=== PATIENT | female | born 1980 | race Caucasian/White ===

== ENCOUNTER 2023-07-22 18:10 | Emergency (ER) | payer MEDICAID, OTHER ==
[~2023-07-22] VITALS: Ht 154.9 cm; Wt 68.0 kg
[2023-07-22 18:15] VITALS: BP_SYST 119; PULSE 92; RESP 18; TEMP 98.1; O2SAT 99
[2023-07-22 18:56] LABS: BASOPHILS # (AUTO) 0.1 K/uL (0.0-0.2); BASOPHILS % (AUTO) 0.9 % (0.0-2.0); EOSINOPHILS # (AUTO) 0.1 K/uL (0.0-0.4); EOSINOPHILS % (AUTO) 2.1 % (0.0-4.0); HEMATOCRIT 32.9 % (36-48); HEMOGLOBIN 11.4 g/dL (12.0-16.0); LYMPHOCYTES # (AUTO) 1.6 K/uL (1.0-5.5); LYMPHOCYTES % (AUTO) 24.4 % (20.5-51.5); MEAN CORPUSCULAR HEMOGLOBIN 30 pg (27-31); MEAN CORPUSCULAR HGB CONC 35 % (32-36); MEAN CORPUSCULAR VOLUME 87 fL (79.0-98.0); MONOCYTES # (AUTO) 0.4 K/uL (0.0-1.0); MONOCYTES % (AUTO) 5.7 % (1.7-9.3); NEUTROPHILS # (AUTO) 4.5 K/uL (1.8-7.7); NEUTROPHILS % (AUTO) 66.9 % (40.0-70.0); PLATELET COUNT (AUTO) 245 K/uL (130-430); RED BLOOD CELL COUNT(AUTO) 3.78 MIL/uL (4.2-6.2); RED CELL DISTRIBUTION WIDTH 15.6 % (9.0-15.0); WHITE BLOOD COUNT (AUTO) 6.7 K/uL (4.8-10.8)
[2023-07-22 18:56] LABS: BILIRUBIN,URINE NEGATIVE (NEGATIVE); BLOOD, URINE 2+ (NEGATIVE); CLARITY/URINE SL CLOUDY (CLEAR); COLOR,URINE YELLOW (YELLOW); GLUCOSE,URINE NEGATIVE (NEGATIVE); KETONES,URINE NEGATIVE (NEGATIVE); LEUKOCYTE ESTERASE ,URINE 3+ (NEGATIVE); NITRITE, URINE NEGATIVE (NEGATIVE); PH,URINE 6.5 (5.0-8.0); PROTEIN URINE TRACE (NEGATIVE); UROBILINOGEN,URINE 0.2 (0.2-1.0)
[2023-07-22 19:03] LABS: BACTERIA,URINE MODERATE /HPF (None Seen); MUCUS,URINE 1+ /LPF (None Seen); OTHER CASTS, URINE WBC CASTS 1+ /LPF (None Seen); WBC,URINE 50-80 /HPF (0-3)
[2023-07-22 19:06] LABS: ALANINE AMINOTRANSFERASE 13 U/L (12-78); ALBUMIN 3.4 g/dL (3.4-4.8); ANION GAP 9 (5-15); ASPARTATE AMINOTRANSFERASE 14 U/L (10-37); BILIRUBIN,DIRECT 0.1 mg/dL (0.0-0.3); CARBON DIOXIDE 29 mmol/L (23-29); CHLORIDE 101 mmol/L (98-107); CREATININE 1.07 mg/dL (0.55-1.30); GFR AFRICAN AMERICAN 71 mL/min (>90); GFR NON AFRICAN-AMERICAN 59 mL/min (>90); GLUCOSE 88 mg/dL (74-106); LIPASE 24 U/L (16-77); POTASSIUM 3.7 mmol/L (3.5-5.1); SODIUM SERUM 139 mmol/L (136-145); TOTAL BILIRUBIN 0.2 mg/dL (0.0-1.0); TOTAL PROTEIN, SERUM 7.6 g/dL (6.4-8.3); UREA NITROGEN, BLOOD 6 mg/dL (8-21)
[2023-07-22] MEDS: IPRATROPIUM/ALBUTEROL SULFATE 3 ML AMPUL.NEB (DUONEB) INH ONE (19:09)
[2023-07-22] MEDS: KETOROLAC TROMETHAMINE 30 MG VIAL IVP ONE (20:14)
[2023-07-22] MEDS: ONDANSETRON HCL 4 MG/2 ML VIAL IVP ONE (20:15)
[2023-07-22] MEDS ORDERED: cefTRIAXone 1 GM VIAL ONE (20:54)
[2023-07-22] MEDS: cefTRIAXone 1 GM in D5W 50 ML IV ONE (20:57)
[2023-07-22] MEDS ORDERED: DOXY100C5 PO (21:13)
[2023-07-22] MEDS ORDERED: DICL50TA9 PO (21:13)
[2023-07-22] MEDS ORDERED: ONDA-8 TL (21:13)
[2023-07-22 21:40] VITALS: BP_SYST 140; PULSE 94; RESP 19; TEMP 97.6; O2SAT 97
== END 2023-07-22 21:37 | disposition home or self-care (01) ==
LOC: SED 18:10
DX: N39.0 Urinary tract infection, site not specified (principal); R10.30 Lower abdominal pain, unspecified; I10 Essential (primary) hypertension; J44.9 Chronic obstructive pulmonary disease, unspecified; Z85.43 Personal history of malignant neoplasm of ovary; Z98.890 Other specified postprocedural states
CPT/HCPCS: 99285; 96365; 96375; 71045; 80076; 80048; 81001; 83880; 83690; 85025; 87086; 84484; 36415; 93005; 94640; J0696; J1885; J2405; 81000; 81015

== ENCOUNTER 2023-08-08 20:20 | Emergency (ER) | payer MEDICAID ==
[~2023-08-08] VITALS: Ht 154.9 cm; Wt 70.3 kg
[~2023-08-08 20:20] MED LIST: DICL50TA9 PO; DOXY100C5 PO; ONDA-8 TL
[2023-08-08 20:28] VITALS: BP_SYST 147; PULSE 90; RESP 18; TEMP 98.7; O2SAT 100
[2023-08-08] MEDS: MORPHINE 4 MG INJ. 4 MG/ML VIAL IVP ONE (20:56)
[2023-08-08 20:57] LABS: BILIRUBIN,URINE NEGATIVE (NEGATIVE); BLOOD, URINE 3+ (NEGATIVE); CLARITY/URINE CLOUDY (CLEAR); COLOR,URINE YELLOW (YELLOW); GLUCOSE,URINE NEGATIVE (NEGATIVE); KETONES,URINE NEGATIVE (NEGATIVE); LEUKOCYTE ESTERASE ,URINE TRACE (NEGATIVE); NITRITE, URINE NEGATIVE (NEGATIVE); PH,URINE 8.5 (5.0-8.0); PROTEIN URINE 2+ (NEGATIVE)
[2023-08-08 21:40] LABS: BACTERIA,URINE MANY /HPF (None Seen)
[2023-08-08 23:54] LABS: BASOPHILS # (AUTO) 0.1 K/uL (0.0-0.2); EOSINOPHILS # (AUTO) 0.2 K/uL (0.0-0.4); EOSINOPHILS % (AUTO) 3.5 % (0.0-4.0); HEMATOCRIT 30.6 % (36-48); HEMOGLOBIN 10.9 g/dL (12.0-16.0); LYMPHOCYTES # (AUTO) 1.2 K/uL (1.0-5.5); LYMPHOCYTES % (AUTO) 20.3 % (20.5-51.5); MEAN CORPUSCULAR HEMOGLOBIN 31 pg (27-31); MEAN CORPUSCULAR HGB CONC 36 % (32-36); MEAN CORPUSCULAR VOLUME 87 fL (79.0-98.0); MONOCYTES # (AUTO) 0.4 K/uL (0.0-1.0); MONOCYTES % (AUTO) 6.8 % (1.7-9.3); NEUTROPHILS # (AUTO) 4.1 K/uL (1.8-7.7); NEUTROPHILS % (AUTO) 68.4 % (40.0-70.0); PLATELET COUNT (AUTO) 213 K/uL (130-430); RED BLOOD CELL COUNT(AUTO) 3.51 MIL/uL (4.2-6.2); RED CELL DISTRIBUTION WIDTH 15.3 % (9.0-15.0)
[2023-08-08 23:57] LABS: CALCIUM 8.8 mg/dL (8.4-11.0); CREATININE 0.98 mg/dL (0.55-1.30); POTASSIUM 3.8 mmol/L (3.5-5.1)
[2023-08-09] MEDS ORDERED: CEPH250C PO (00:08)
[2023-08-09 00:16] VITALS: BP_SYST 149; PULSE 77; RESP 16; TEMP 97.8; O2SAT 93
== END 2023-08-09 00:16 | disposition home or self-care (01) ==
LOC: SED 20:20
DX: N39.0 Urinary tract infection, site not specified (principal); R22.43 Localized swelling, mass and lump, lower limb, bilateral; Z98.890 Other specified postprocedural states; J44.9 Chronic obstructive pulmonary disease, unspecified; I10 Essential (primary) hypertension; Z79.899 Other long term (current) drug therapy; Z79.2 Long term (current) use of antibiotics
CPT/HCPCS: 99285; 93970; 96374; 80048; 81001; 85025; 87086; 36415; J2270; 81000; 81015

== ENCOUNTER 2023-08-24 20:26 | Inpatient (IN) | payer MEDICAID ==
[~2023-08-24] VITALS: Ht 154.9 cm; Wt 72.1 kg
[~2023-08-24 20:26] MED LIST changes: +CEPH250C PO
[2023-08-24 20:41] VITALS: BP_SYST 162; PULSE 87; RESP 16; TEMP 97.7; O2SAT 100
[2023-08-24 21:17] LABS: BILIRUBIN,URINE NEGATIVE (NEGATIVE); BLOOD, URINE 1+ (NEGATIVE); CLARITY/URINE CLEAR (CLEAR); COLOR,URINE YELLOW (YELLOW); GLUCOSE,URINE NEGATIVE (NEGATIVE); KETONES,URINE NEGATIVE (NEGATIVE); LEUKOCYTE ESTERASE ,URINE NEGATIVE (NEGATIVE); NITRITE, URINE NEGATIVE (NEGATIVE); PROTEIN URINE 1+ (NEGATIVE); UROBILINOGEN,URINE 0.2 (0.2-1.0)
[2023-08-24 21:27] LABS: BACTERIA,URINE RARE /HPF (None Seen); MUCUS,URINE 1+ /LPF (None Seen)
[2023-08-24] MEDS: MORPHINE 4 MG INJ. 4 MG/ML VIAL IM ONE (21:36)
[2023-08-24 21:37] LABS: BASOPHILS # (AUTO) 0.1 K/uL (0.0-0.2); BASOPHILS % (AUTO) 0.7 % (0.0-2.0); EOSINOPHILS # (AUTO) 0.2 K/uL (0.0-0.4); EOSINOPHILS % (AUTO) 2.6 % (0.0-4.0); HEMOGLOBIN 11.7 g/dL (12.0-16.0); LYMPHOCYTES # (AUTO) 1.8 K/uL (1.0-5.5); LYMPHOCYTES % (AUTO) 21.6 % (20.5-51.5); MEAN CORPUSCULAR HEMOGLOBIN 30 pg (27-31); MEAN CORPUSCULAR HGB CONC 35 % (32-36); MEAN CORPUSCULAR VOLUME 86 fL (79.0-98.0); MONOCYTES # (AUTO) 0.5 K/uL (0.0-1.0); MONOCYTES % (AUTO) 6.2 % (1.7-9.3); NEUTROPHILS # (AUTO) 5.8 K/uL (1.8-7.7); NEUTROPHILS % (AUTO) 68.9 % (40.0-70.0); PLATELET COUNT (AUTO) 239 K/uL (130-430); RED BLOOD CELL COUNT(AUTO) 3.95 MIL/uL (4.2-6.2); RED CELL DISTRIBUTION WIDTH 14.7 % (9.0-15.0); WHITE BLOOD COUNT (AUTO) 8.4 K/uL (4.8-10.8)
[2023-08-24 21:45] LABS: ALBUMIN 3.2 g/dL (3.4-4.8); BILIRUBIN,DIRECT 0.1 mg/dL (0.0-0.3); CALCIUM 8.6 mg/dL (8.4-11.0); CREATININE 1.16 mg/dL (0.55-1.30); POTASSIUM 4.3 mmol/L (3.5-5.1); TOTAL BILIRUBIN 0.2 mg/dL (0.0-1.0); TOTAL PROTEIN, SERUM 7.1 g/dL (6.4-8.3)
[2023-08-24] MEDS: ONDANSETRON HCL 4 MG/2 ML VIAL IVP ONE (21:48)
[2023-08-24] MEDS: MORPHINE 4 MG INJ. 4 MG/ML VIAL IVP ONE (21:49)
[2023-08-25] MEDS: NACL 0.9% 1,000 ML IV ONE (00:02)
[2023-08-25] MEDS: MORPHINE 4 MG INJ. 4 MG/ML VIAL IVP ONE (00:43)
[2023-08-25] MEDS: ENALAPRILAT DIHYDRATE 1.25 MG/ML VIAL IVP ONE (03:41)
[2023-08-25] MEDS: LABETALOL HCL 20 MG/4 ML CARTRIDGE IVP ONE (03:41)
[2023-08-25 05:31] VITALS: BP_SYST 162; PULSE 73; RESP 18; TEMP 97.9; O2SAT 97
[2023-08-25] MEDS: D5/0.45 NS 1,000 ML IV SCH (06:05)
[2023-08-25 06:06] VITALS: TEMP 97.9
[2023-08-25 08:00] VITALS: O2SAT 0
[2023-08-25] MEDS: HYDROcodone/ACETAMIN 10-325 MG TAB PO PRN (08:36)
[2023-08-25] MEDS: HYDROCHLOROTHIAZIDE 25 MG TABLET (HCTZ) PO SCH (08:36)
[2023-08-25 11:09] VITALS: BP_SYST 139; PULSE 67; RESP 15; TEMP 97.7; O2SAT 97
[2023-08-25] MEDS ORDERED: HYDROcodone/ACETAMIN 5-325 MG TAB (NORCO/ VICODIN) PO PRN (12:30)
[2023-08-25] MEDS ORDERED: NALOXONE HCL 0.4 MG/ML AMP (NARCAN) IVP PRN ×2 (12:30)
[2023-08-25] MEDS ORDERED: HYDROcodone/ACETAMIN 10-325 MG TAB PO PRN (12:30)
[2023-08-25] MEDS ORDERED: ONDANSETRON 4 MG ODT TAB TL PRN (12:30)
[2023-08-25] MEDS ORDERED: ACETAMINOPHEN 325 MG TABLET PO PRN (12:30)
[2023-08-25] MEDS ORDERED: cephALEXin 500 MG CAPSULE PO SCH (13:00)
[2023-08-25] MEDS ORDERED: cephALEXin 250 MG CAPSULE PO SCH (13:00)
[2023-08-25 13:12] LABS: BASOPHILS # (AUTO) 0.1 K/uL (0.0-0.2); BASOPHILS % (AUTO) 0.5 % (0.0-2.0); CALCIUM 8.5 mg/dL (8.4-11.0); CREATININE 1.12 mg/dL (0.55-1.30); EOSINOPHILS # (AUTO) 0.1 K/uL (0.0-0.4); EOSINOPHILS % (AUTO) 1.1 % (0.0-4.0); HEMATOCRIT 33.1 % (36-48); HEMOGLOBIN 11.4 g/dL (12.0-16.0); LYMPHOCYTES # (AUTO) 1.1 K/uL (1.0-5.5); LYMPHOCYTES % (AUTO) 12.4 % (20.5-51.5); MEAN CORPUSCULAR HEMOGLOBIN 30 pg (27-31); MEAN CORPUSCULAR HGB CONC 35 % (32-36); MEAN CORPUSCULAR VOLUME 87 fL (79.0-98.0); MONOCYTES # (AUTO) 0.7 K/uL (0.0-1.0); MONOCYTES % (AUTO) 7.1 % (1.7-9.3); NEUTROPHILS # (AUTO) 7.3 K/uL (1.8-7.7); NEUTROPHILS % (AUTO) 78.9 % (40.0-70.0); PLATELET COUNT (AUTO) 126 K/uL (130-430); POTASSIUM 3.8 mmol/L (3.5-5.1); RED CELL DISTRIBUTION WIDTH 15.2 % (9.0-15.0); WHITE BLOOD COUNT (AUTO) 9.2 K/uL (4.8-10.8)
[2023-08-25] MEDS: NORMAL SALINE 5 ML DISP.SYRIN IVF SCH (13:52)
[2023-08-25 16:05] VITALS: BP_SYST 135; PULSE 69; RESP 15; TEMP 97.9; O2SAT 98
[2023-08-25] MEDS: WARFARIN SODIUM 5 MG TABLET PO SCH (18:19)
[2023-08-25] MEDS: COMMUNICATION ORDER XX ONE (19:00)
[2023-08-25] MEDS ORDERED: ENOXAPARIN SODIUM 80 MG/0.8 ML SYRINGE SUBCUT SCH (19:16)
[2023-08-25 20:00] VITALS: BP_SYST 148; PULSE 73; RESP 18; TEMP 98
[2023-08-25] MEDS ORDERED: DOXYCYCLINE HYCLATE 100 MG TABLET PO SCH (21:00)
[2023-08-25] MEDS ORDERED: DICLOFENAC SODIUM 25 MG TABLET.DR PO SCH (21:00)
[2023-08-25] MEDS: ENOXAPARIN SODIUM 80 MG/0.8 ML SYRINGE SUBCUT SCH (21:09)
[2023-08-26 00:46] VITALS: BP_SYST 135; PULSE 76; RESP 14; TEMP 97.7; O2SAT 95
[2023-08-26 06:47] LABS: PROTHROMBIN TIME 10.4 SECS (9.5-12.5)
[2023-08-26 06:52] LABS: BASOPHILS % (AUTO) 0.7 % (0.0-2.0); EOSINOPHILS # (AUTO) 0.1 K/uL (0.0-0.4); EOSINOPHILS % (AUTO) 1.9 % (0.0-4.0); HEMATOCRIT 30.8 % (36-48); HEMOGLOBIN 10.6 g/dL (12.0-16.0); LYMPHOCYTES # (AUTO) 1.6 K/uL (1.0-5.5); LYMPHOCYTES % (AUTO) 22.3 % (20.5-51.5); MEAN CORPUSCULAR HEMOGLOBIN 30 pg (27-31); MEAN CORPUSCULAR HGB CONC 35 % (32-36); MEAN CORPUSCULAR VOLUME 86 fL (79.0-98.0); MONOCYTES # (AUTO) 0.6 K/uL (0.0-1.0); MONOCYTES % (AUTO) 8.8 % (1.7-9.3); NEUTROPHILS # (AUTO) 4.9 K/uL (1.8-7.7); NEUTROPHILS % (AUTO) 66.3 % (40.0-70.0); PLATELET COUNT (AUTO) 194 K/uL (130-430); RED BLOOD CELL COUNT(AUTO) 3.57 MIL/uL (4.2-6.2); RED CELL DISTRIBUTION WIDTH 14.7 % (9.0-15.0); WHITE BLOOD COUNT (AUTO) 7.3 K/uL (4.8-10.8)
[2023-08-26 06:56] LABS: CALCIUM 8.4 mg/dL (8.4-11.0); CREATININE 1.32 mg/dL (0.55-1.30); POTASSIUM 3.4 mmol/L (3.5-5.1)
[2023-08-26 08:00] VITALS: BP_SYST 133; PULSE 77; RESP 18; TEMP 96.9; O2SAT 76; O2SAT 97
[2023-08-26] MEDS ORDERED: *LOVENOX 1MG/KG Q12H/PHARMACY XX SCH (08:45)
[2023-08-26 16:23] VITALS: BP_SYST 138; PULSE 75; RESP 16; TEMP 97.8; O2SAT 97
[2023-08-26 19:30] VITALS: BP_SYST 166; PULSE 75; RESP 20; TEMP 98.4
[2023-08-26 21:04] VITALS: O2SAT 95
[2023-08-27] VITALS (7 sets, daily range): BP systolic 135–159; PULSE 68–77; RESP 17–20; TEMP 97.2–98.2; O2SAT 94–99
[2023-08-27] MEDS: ACETAMINOPHEN 325 MG TABLET PO PRN (04:09)
[2023-08-27 05:02] LABS: BASOPHILS % (AUTO) 0.7 % (0.0-2.0); EOSINOPHILS # (AUTO) 0.1 K/uL (0.0-0.4); EOSINOPHILS % (AUTO) 2.1 % (0.0-4.0); HEMATOCRIT 31.9 % (36-48); HEMOGLOBIN 10.8 g/dL (12.0-16.0); LYMPHOCYTES # (AUTO) 1.2 K/uL (1.0-5.5); LYMPHOCYTES % (AUTO) 17.3 % (20.5-51.5); MEAN CORPUSCULAR HEMOGLOBIN 29 pg (27-31); MEAN CORPUSCULAR HGB CONC 34 % (32-36); MEAN CORPUSCULAR VOLUME 86 fL (79.0-98.0); MONOCYTES # (AUTO) 0.6 K/uL (0.0-1.0); MONOCYTES % (AUTO) 8.5 % (1.7-9.3); NEUTROPHILS % (AUTO) 71.4 % (40.0-70.0); PLATELET COUNT (AUTO) 200 K/uL (130-430); RED CELL DISTRIBUTION WIDTH 14.8 % (9.0-15.0)
[2023-08-27 05:14] LABS: ALBUMIN 2.5 g/dL (3.4-4.8); CALCIUM 8.4 mg/dL (8.4-11.0); CREATININE 1.62 mg/dL (0.55-1.30); PHOSPHORUS 4.6 mg/dL (2.7-4.5); POTASSIUM 3.2 mmol/L (3.5-5.1); TOTAL BILIRUBIN 0.3 mg/dL (0.0-1.0); TOTAL PROTEIN, SERUM 6.1 g/dL (6.4-8.3)
[2023-08-27 05:28] LABS: INR 1.1 (0.8-1.2); PROTHROMBIN TIME 11.5 SECS (9.5-12.5)
[2023-08-27] MEDS: POTASSIUM CHLORIDE 20 MEQ TABLET.ER PO ONE (11:04)
[2023-08-27] MEDS: HYDROcodone/ACETAMIN 5-325 MG TAB (NORCO/ VICODIN) PO PRN (14:54)
[2023-08-28] VITALS: BP_SYST 167; PULSE 83; RESP 18; TEMP 98.3; O2SAT 99
[2023-08-28] MEDS: LORazepam 2 MG/ML VIAL IVP PRN (00:04)
[2023-08-28 05:31] LABS: BASOPHILS % (AUTO) 0.6 % (0.0-2.0); EOSINOPHILS # (AUTO) 0.2 K/uL (0.0-0.4); EOSINOPHILS % (AUTO) 3.3 % (0.0-4.0); HEMATOCRIT 32.2 % (36-48); HEMOGLOBIN 10.9 g/dL (12.0-16.0); LYMPHOCYTES # (AUTO) 1.5 K/uL (1.0-5.5); LYMPHOCYTES % (AUTO) 23.7 % (20.5-51.5); MEAN CORPUSCULAR HEMOGLOBIN 29 pg (27-31); MEAN CORPUSCULAR HGB CONC 34 % (32-36); MEAN CORPUSCULAR VOLUME 86 fL (79.0-98.0); MONOCYTES # (AUTO) 0.6 K/uL (0.0-1.0); MONOCYTES % (AUTO) 8.7 % (1.7-9.3); NEUTROPHILS # (AUTO) 4.1 K/uL (1.8-7.7); NEUTROPHILS % (AUTO) 63.7 % (40.0-70.0); PLATELET COUNT (AUTO) 230 K/uL (130-430); RED BLOOD CELL COUNT(AUTO) 3.74 MIL/uL (4.2-6.2); RED CELL DISTRIBUTION WIDTH 14.4 % (9.0-15.0); WHITE BLOOD COUNT (AUTO) 6.4 K/uL (4.8-10.8)
[2023-08-28 06:02] LABS: CALCIUM 8.6 mg/dL (8.4-11.0); CREATININE 2.01 mg/dL (0.55-1.30); PHOSPHORUS 4.7 mg/dL (2.7-4.5); POTASSIUM 3.2 mmol/L (3.5-5.1)
[2023-08-28 06:15] LABS: INR 1.3 (0.8-1.2); PROTHROMBIN TIME 13.3 SECS (9.5-12.5)
[2023-08-28 08:33] VITALS: BP_SYST 167; PULSE 77; RESP 16; TEMP 97.7; O2SAT 97
[2023-08-28] MEDS ORDERED: APIX5TAB PO (11:01)
[2023-08-28 12:41] VITALS: PULSE 74; RESP 18; TEMP 97.9; O2SAT 99
[2023-08-28 12:43] VITALS: O2SAT 97
[2023-08-28] MEDS: POTASSIUM CHLORIDE 20 MEQ TABLET.ER PO ONE (13:11)
[2023-08-28] MEDS: hydrALAZINE HCL 25 MG TABLET PO ONE (14:43)
[2023-08-28 16:18] VITALS: BP_SYST 165; PULSE 79; RESP 18; TEMP 97.7; O2SAT 98
[2023-08-28 19:00] VITALS: O2SAT 95
[2023-08-28] MEDS: hydrALAZINE HCL 25 MG TABLET PO PRN (22:30)
[2023-08-29 00:22] VITALS: BP_SYST 147; PULSE 93; RESP 16; TEMP 98.3; O2SAT 96
[2023-08-29 04:54] LABS: BASOPHILS % (AUTO) 0.5 % (0.0-2.0); EOSINOPHILS # (AUTO) 0.2 K/uL (0.0-0.4); EOSINOPHILS % (AUTO) 2.4 % (0.0-4.0); HEMATOCRIT 29.8 % (36-48); HEMOGLOBIN 10.1 g/dL (12.0-16.0); LYMPHOCYTES # (AUTO) 1.1 K/uL (1.0-5.5); LYMPHOCYTES % (AUTO) 13.6 % (20.5-51.5); MEAN CORPUSCULAR HEMOGLOBIN 29 pg (27-31); MEAN CORPUSCULAR HGB CONC 34 % (32-36); MEAN CORPUSCULAR VOLUME 86 fL (79.0-98.0); MONOCYTES # (AUTO) 0.7 K/uL (0.0-1.0); NEUTROPHILS # (AUTO) 6.1 K/uL (1.8-7.7); NEUTROPHILS % (AUTO) 74.5 % (40.0-70.0); PLATELET COUNT (AUTO) 210 K/uL (130-430); RED BLOOD CELL COUNT(AUTO) 3.45 MIL/uL (4.2-6.2); RED CELL DISTRIBUTION WIDTH 14.8 % (9.0-15.0); WHITE BLOOD COUNT (AUTO) 8.2 K/uL (4.8-10.8)
[2023-08-29 05:11] LABS: INR 1.3 (0.8-1.2); PROTHROMBIN TIME 13.3 SECS (9.5-12.5)
[2023-08-29 07:54] LABS: ALBUMIN 2.6 g/dL (3.4-4.8); CALCIUM 8.1 mg/dL (8.4-11.0); CREATININE 2.78 mg/dL (0.55-1.30); PHOSPHORUS 4.2 mg/dL (2.7-4.5); POTASSIUM 3.3 mmol/L (3.5-5.1); TOTAL BILIRUBIN 0.3 mg/dL (0.0-1.0); TOTAL PROTEIN, SERUM 6.1 g/dL (6.4-8.3)
[2023-08-29 08:00] VITALS: BP_SYST 175; PULSE 81; RESP 20; TEMP 97.7; O2SAT 96
[2023-08-29 09:15] VITALS: O2SAT 96
[2023-08-29 12:48] VITALS: BP_SYST 150; PULSE 90; RESP 18; TEMP 98.4; O2SAT 97
[2023-08-29] MEDS: ONDANSETRON HCL 4 MG/2 ML VIAL IVP PRN (13:11)
[2023-08-29] MEDS: ALBUMIN HUMAN 25% 50 ML IV SCH (13:12)
[2023-08-29 16:36] VITALS: BP_SYST 154; PULSE 86; RESP 18; TEMP 98.6; O2SAT 95
[2023-08-29] MEDS: DOCUSATE SODIUM 100 MG CAPSULE PO PRN (17:34)
[2023-08-29] MEDS: WARFARIN SODIUM 7.5 MG TABLET PO SCH (17:43)
[2023-08-29] MEDS: POTASSIUM CHLORIDE 20 MEQ TABLET.ER PO ONE (18:32)
[2023-08-29 21:43] VITALS: BP_SYST 161; PULSE 90; RESP 18; TEMP 98.1; O2SAT 96
== END 2023-08-29 22:15 | disposition home or self-care (01) | DRG 861 ==
LOC: SED 20:26 → SMU 08-25 01:39
PROVIDERS: ADMIT Preventive Medicine Preventive Medicine/Occupational Environmental Medicine; ATTEND Preventive Medicine Preventive Medicine/Occupational Environmental Medicine
DX: G89.3 Neoplasm related pain (acute) (chronic) (principal); N17.0 Acute kidney failure with tubular necrosis; E43 Unspecified severe protein-calorie malnutrition; C79.9 Secondary malignant neoplasm of unspecified site; I82.401 Acute embolism and thrombosis of unspecified deep veins of right lower extremity; E83.39 Other disorders of phosphorus metabolism; C56.3 Malignant neoplasm of bilateral ovaries; E87.1 Hypo-osmolality and hyponatremia; E83.51 Hypocalcemia; E88.09 Other disorders of plasma-protein metabolism, not elsewhere classified; N13.30 Unspecified hydronephrosis; D64.9 Anemia, unspecified; E87.6 Hypokalemia; E87.5 Hyperkalemia; J44.9 Chronic obstructive pulmonary disease, unspecified; I10 Essential (primary) hypertension; Z79.01 Long term (current) use of anticoagulants; Z90.49 Acquired absence of other specified parts of digestive tract; Z87.440 Personal history of urinary (tract) infections; Z85.43 Personal history of malignant neoplasm of ovary; Z68.30 Body mass index [BMI] 30.0-30.9, adult; Z79.899 Other long term (current) drug therapy
CPT/HCPCS: 36415; 76770; 80048; 80053; 80076; 81000; 81001; 81015; 83690; 83735; 84100; 85025; 85610; 86304; 87086; 93922; 93971; 96374; 96375; 97112-GP; 97116-GP; 99285; J1650; J2060; J2270; J2405; P9046

== ENCOUNTER 2023-09-08 22:05 | Emergency (ER) | payer MEDICAID ==
[~2023-09-08] VITALS: Ht 175.3 cm; Wt 74.8 kg
[~2023-09-08 22:05] MED LIST changes: +APIX5TAB PO; -CEPH250C PO; -DICL50TA9 PO; -DOXY100C5 PO
[2023-09-08 22:17] VITALS: BP_SYST 165; PULSE 100; RESP 18; TEMP 99; O2SAT 100
[2023-09-08 22:55] LABS: BASOPHILS % (AUTO) 0.3 % (0.0-2.0); EOSINOPHILS # (AUTO) 0.1 K/uL (0.0-0.4); EOSINOPHILS % (AUTO) 1.8 % (0.0-4.0); HEMATOCRIT 27.9 % (36-48); HEMOGLOBIN 9.8 g/dL (12.0-16.0); LYMPHOCYTES # (AUTO) 0.7 K/uL (1.0-5.5); LYMPHOCYTES % (AUTO) 10.8 % (20.5-51.5); MEAN CORPUSCULAR HEMOGLOBIN 30 pg (27-31); MEAN CORPUSCULAR HGB CONC 35 % (32-36); MEAN CORPUSCULAR VOLUME 85 fL (79.0-98.0); MONOCYTES % (AUTO) 15.7 % (1.7-9.3); NEUTROPHILS # (AUTO) 4.7 K/uL (1.8-7.7); NEUTROPHILS % (AUTO) 71.4 % (40.0-70.0); PLATELET COUNT (AUTO) 348 K/uL (130-430); RED BLOOD CELL COUNT(AUTO) 3.29 MIL/uL (4.2-6.2); RED CELL DISTRIBUTION WIDTH 15.1 % (9.0-15.0); WHITE BLOOD COUNT (AUTO) 6.6 K/uL (4.8-10.8)
[2023-09-08 23:03] LABS: ALBUMIN 2.9 g/dL (3.4-4.8); BILIRUBIN,DIRECT 0.1 mg/dL (0.0-0.3); CALCIUM 8.4 mg/dL (8.4-11.0); CREATININE 1.19 mg/dL (0.55-1.30); TOTAL BILIRUBIN 0.3 mg/dL (0.0-1.0); TOTAL PROTEIN, SERUM 6.6 g/dL (6.4-8.3)
[2023-09-08] MEDS: HYDROmorphone 1 MG/ML INJ. CARTRIDGE IVP ONE (23:13)
[2023-09-08 23:55] LABS: BILIRUBIN,URINE NEGATIVE (NEGATIVE); BLOOD, URINE 3+ (NEGATIVE); CLARITY/URINE CLOUDY (CLEAR); COLOR,URINE ORANGE (YELLOW); GLUCOSE,URINE NEGATIVE (NEGATIVE); KETONES,URINE NEGATIVE (NEGATIVE); LEUKOCYTE ESTERASE ,URINE 1+ (NEGATIVE); NITRITE, URINE NEGATIVE (NEGATIVE); PROTEIN URINE 2+ (NEGATIVE); UROBILINOGEN,URINE 0.2 (0.2-1.0)
[2023-09-09 00:04] LABS: RBC,URINE 80-100 /HPF (0-3)
[2023-09-09 00:05] LABS: BACTERIA,URINE RARE /HPF (None Seen)
[2023-09-09] MEDS: POTASSIUM CHLORIDE 20 MEQ/PKT PACKET PO ONE (00:24)
[2023-09-09 00:57] VITALS: BP_SYST 165; PULSE 98; RESP 18; TEMP 98; O2SAT 100
== END 2023-09-09 00:57 | disposition home or self-care (01) ==
LOC: SED 22:05
DX: R10.9 Unspecified abdominal pain (principal); R51.9 Headache, unspecified; J44.9 Chronic obstructive pulmonary disease, unspecified; I10 Essential (primary) hypertension; Z85.43 Personal history of malignant neoplasm of ovary
CPT/HCPCS: 99285; 70450; 96374; 80076; 80048; 81001; 85025; 87086; 36415; 74176; 81000; 81015; J1170

== ENCOUNTER 2023-09-20 15:26 | Emergency (ER) | payer MEDICAID ==
[~2023-09-20] VITALS: Ht 154.9 cm; Wt 59.0 kg
[2023-09-20 15:30] VITALS: BP_SYST 128; PULSE 88; RESP 18; TEMP 98.7; O2SAT 98
[2023-09-20 16:10] LABS: WHITE BLOOD COUNT (AUTO) 9.6 K/uL (4.8-10.8)
[2023-09-20 16:16] LABS: BASOPHILS # (AUTO) 0.1 K/uL (0.0-0.2); EOSINOPHILS # (AUTO) 0.2 K/uL (0.0-0.4); EOSINOPHILS % (AUTO) 2.2 % (0.0-4.0); HEMATOCRIT 29.3 % (36-48); LYMPHOCYTES # (AUTO) 1.5 K/uL (1.0-5.5); LYMPHOCYTES % (AUTO) 15.3 % (20.5-51.5); MEAN CORPUSCULAR HEMOGLOBIN 29 pg (27-31); MEAN CORPUSCULAR HGB CONC 34 % (32-36); MEAN CORPUSCULAR VOLUME 84 fL (79.0-98.0); MONOCYTES # (AUTO) 0.7 K/uL (0.0-1.0); MONOCYTES % (AUTO) 7.3 % (1.7-9.3); NEUTROPHILS # (AUTO) 7.2 K/uL (1.8-7.7); NEUTROPHILS % (AUTO) 74.2 % (40.0-70.0); PLATELET COUNT (AUTO) 429 K/uL (130-430); RED BLOOD CELL COUNT(AUTO) 3.47 MIL/uL (4.2-6.2); RED CELL DISTRIBUTION WIDTH 14.6 % (9.0-15.0)
[2023-09-20] MEDS: ONDANSETRON HCL 4 MG/2 ML VIAL IVP ONE (16:21)
[2023-09-20] MEDS: MORPHINE 4 MG INJ. 4 MG/ML VIAL IVP ONE (16:28)
[2023-09-20 16:36] LABS: ALBUMIN 3.4 g/dL (3.4-4.8); BILIRUBIN,DIRECT 0.1 mg/dL (0.0-0.3); CALCIUM 9.5 mg/dL (8.4-11.0); CREATININE 1.55 mg/dL (0.55-1.30); POTASSIUM 4.5 mmol/L (3.5-5.1); TOTAL BILIRUBIN 0.2 mg/dL (0.0-1.0); TOTAL PROTEIN, SERUM 7.4 g/dL (6.4-8.3)
[2023-09-20] MEDS: NACL 0.9% 1,000 ML IV ONE (17:05)
[2023-09-20 17:57] LABS: BILIRUBIN,URINE NEGATIVE (NEGATIVE); BLOOD, URINE 3+ (NEGATIVE); COLOR,URINE YELLOW (YELLOW); GLUCOSE,URINE NEGATIVE (NEGATIVE); KETONES,URINE NEGATIVE (NEGATIVE); LEUKOCYTE ESTERASE ,URINE 2+ (NEGATIVE); NITRITE, URINE NEGATIVE (NEGATIVE); PROTEIN URINE 2+ (NEGATIVE); UROBILINOGEN,URINE 0.2 (0.2-1.0)
[2023-09-20 17:58] LABS: CLARITY/URINE HAZY (CLEAR)
[2023-09-20 18:14] LABS: BACTERIA,URINE MODERATE /HPF (None Seen)
[2023-09-20 18:23] VITALS: TEMP 97.9
[2023-09-20 19:20] VITALS: BP_SYST 135; PULSE 83; RESP 18; O2SAT 93
[2023-09-20] MEDS ORDERED: CEPH-548 PO (20:56)
[2023-09-20] MEDS ORDERED: cefTRIAXone 1 GM VIAL ONE (21:06)
[2023-09-20] MEDS: cefTRIAXone 1 GM in D5W 50 ML IV ONE (21:11)
== END 2023-09-20 21:46 | disposition home or self-care (01) ==
LOC: SED 15:26
DX: C56.9 Malignant neoplasm of unspecified ovary (principal); N39.0 Urinary tract infection, site not specified; R10.31 Right lower quadrant pain; J44.9 Chronic obstructive pulmonary disease, unspecified; I10 Essential (primary) hypertension; Z79.899 Other long term (current) drug therapy; Z79.2 Long term (current) use of antibiotics
CPT/HCPCS: 99285; 74176; 96365; 96375; 96361; 80076; 80048; 81001; 83690; 85025; 87040; 87086; 87186; 36415; 81025; 83605; J0696; J2405; J2270; J7030; 81000; 81015